=== PATIENT | female | born 1965 | race Caucasian/White ===

== ENCOUNTER 2017-06-10 16:40 | Emergency (ER) | payer OTHER ==
[~2017-06-10] VITALS: Ht 157.5 cm; Wt 65.8 kg
--- NOTE | ~2017-06-10 | CR72 ---
[facility] A Service [facility] RADIOLOGY TEXT RESULTS PATIENT: BENY CANCHOLA LOCATION: [facility] : 63 UNIT #: [id number] AGE: [address]: Bakari Tijerina MD SEX: F ORDER DR: [id number] [facility] [address] [place], [place] [address] [id number] E MR#: [id number] Acc #: [id number] NAME: BENY CANCHOLA. : 1965 SEX: F STUDY DATE/TIME: 06/10/2017 19:59 UNIT: [facility] ROOM: STUDY DESCRIPTION: CR Chest Single View Portable Attending Physician: Bakari Tijerina M.D. Ordering Physician: Bakari Tijerina M.D. Primary Care Physician: Van Gonzalez M.D. MEDICAL IMAGING REPORT This report is preliminary unless electronic signature is present EXAM Chest portable, 06/10/2017, 1959 hours. CLINICAL HISTORY Shortness of air, cough, chest pain and congestion for 3 days. COMPARISON None. FINDINGS Single upright portable film was performed. Patient was requested and received shielding of the upper airway and chin. COMPARISON None. FINDINGS Single upright portable view demonstrates normal cardiac, mediastinal and hilar contours. There is underlying emphysematous change and calcified granulomata. There is no acute pulmonary density or pleural effusion. IMPRESSION Emphysematous changes with calcified granulomata. No acute cardiopulmonary findings. Dictated by... Dona Jacobs M.D. THIS IS AN ELECTRONICALLY VERIFIED REPORT Dona Jacobs M.D. at 06/11/2017 9:28 AM BHAKTI/candice [facility] A Service [facility] RADIOLOGY TEXT RESULTS PATIENT: BENY CANCHOLA LOCATION: [facility] : 63 UNIT #: [id number] AGE: [address]: Bakari Tijerina MD SEX: F ORDER DR: TD: 06/10/2017 23:59 JOB #: [id number] MEDICAL IMAGING REPORT Page 1 of 1 COPY
--- NOTE | ~2017-06-10 | EKG ---
PATIENT: BENY CANCHOLA UNIT #: [id number] Ventricular Rate: 80 BPM Atrial Rate: 80 BPM P-R Interval: 128 ms QRS Duration: 102 ms Q-T Interval: 392 ms QTC Calculation(Bezet): 452 ms P [place]: 53 degrees Calculated R [place]: 0 degrees Calculated T [place]: 40 degrees Diagnosis Line: Sinus rhythm with occasional Premature ventricular Diagnosis Line: complexes Diagnosis Line: Incomplete right bundle branch block Diagnosis Line: Septal infarct , age undetermined Diagnosis Line: Abnormal ECG Diagnosis Line: No previous ECGs available Diagnosis Line: Confirmed by JUSTIN JOSEPH MD ([id number]) on Diagnosis Line: 06/11/2017 7:14:51 AM INTERPRETING MD: JAKE JOHNSON
[~2017-06-10 16:40] MED LIST: ACIPHEX20 MG PO; ALBUTEROL17 GM INH; FLEXERIL; LORTAB 2.5/5001 TAB; LORTAB 7.5-5001 TAB PO; SYNTHROID PO; TOPROL XL
[2017-06-10 18:27] LABS: URINE SOURCE CLEAN CATCH
[2017-06-10 18:38] LABS: BASOPHIL% 0.5 % (0-2.5); DIFF IND NO; EOSINOPHIL# 0.1 X10e3 (0-0.7); EOSINOPHIL% 0.9 % (0.0-7.0); HEMOGLOBIN 15.2 gm/dL (12.0-16.0); LYMPHOCYTE# 3.7 X10e3 (1.0-3.5); LYMPHOCYTE% 41.4 % (17.0-45.0); MEAN CELL VOLUME 95.4 FL (83-96); MEAN CORPUSCULAR HGB CONC 34.6 g/dL (30-36); MEAN PLATELET VOLUME 10.3 FL (6.5-11.5); MONOCYTE# 0.4 X10e3 (0-1.0); MONOCYTE% 4.3 % (3.0-12.0); NEUTROPHIL# 4.7 X10e3 (1.5-7.1); NEUTROPHIL% 52.9 % (40-75); PLATELET COUNT 185 X10e3 (140-420); RED BLOOD COUNT 4.61 X10e (3.90-5.30); RED CELL DISTRIBUTION WIDTH 13.2 % (11.0-15.5); WHITE BLOOD COUNT 8.9 X10e3 (4.0-10.5)
[2017-06-10 18:39] LABS: URINE APPEARANCE CLEAR; URINE BILIRUBIN NEG (NEG); URINE BLOOD NEG (NEG); URINE COLOR YELLOW; URINE GLUCOSE NEG (NEG); URINE KETONE NEG (NEG); URINE LEUKOCYTE ESTERASE NEG (NEG); URINE NITRATE NEG (NEG); URINE PROTEIN NEG (NEG); URINE SPECIFIC GRAVITY 1.009 (1.003-1.035); URINE UROBILINOGEN 0.2 MG/DL (NEG)
[2017-06-10 18:44] LABS: CULTURE INDICATED? NO
[2017-06-10 18:47] LABS: POC - CKMB <1.0 ng/mL (0.0-7.9); POC - TROPONIN <0.05 ng/mL (<=0.05)
[2017-06-10 19:12] LABS: ALBUMIN SERUM 4.4 g/dL (3.5-5.0); BILIRUBIN, DIRECT 0.1 mg/dL (0.0-0.2); BILIRUBIN,INDIRECT 0.5 mg/dL (0.0-0.9); BILIRUBIN,TOTAL 0.6 mg/dL (0.2-2.0); BUN/CREATININE RATIO 8.75; CALCIUM SERUM 9.5 mg/dL (8.4-10.2); CREATININE SERUM 0.8 mg/dL (0.6-1.4); GLOM FILT RATE Estimated 84.8 mL/min (>60); POTASSIUM 3.9 mmol/L (3.5-5.1); PROTEIN TOTAL SERUM 7.6 g/dL (6.0-8.3)
[2017-06-10 20:32] LABS: POC - CKMB <1.0 ng/mL (0.0-7.9); POC - TROPONIN <0.05 ng/mL (<=0.05)
== END 2017-06-10 21:06 | disposition home or self-care (01) ==
LOC: CED 16:40
PROVIDERS: Emergency Medicine
DX: R53.1 Weakness (principal); R53.83 Other fatigue; J44.9 Chronic obstructive pulmonary disease, unspecified; Z90.710 Acquired absence of both cervix and uterus; F17.200 Nicotine dependence, unspecified, uncomplicated; Z88.1 Allergy status to other antibiotic agents; Z88.8 Allergy status to other drugs, medicaments and biological substances; Z98.890 Other specified postprocedural states
CPT/HCPCS: 36415; 71010; 80048; 80076; 81003; 82553; 84484; 85025; 93005; 99285